=== PATIENT | male | born 1950 | race Caucasian/White ===

== ENCOUNTER 2018-11-15 22:53 | Emergency (ER) | payer MEDICARE, BC ==
[2018-11-16] MEDS: HYDROCODONE/APAP (5/325) TAB PO (01:03)
[2018-11-16] MEDS: CLINDAMYCIN 900 MG (PMX) 50 ML IVPB (01:07)
== END 2018-11-16 02:07 | disposition home or self-care (01) ==
LOC: E/R 22:53
DX: L03.011 Cellulitis of right finger (principal); I10 Essential (primary) hypertension; E11.9 Type 2 diabetes mellitus without complications; E03.9 Hypothyroidism, unspecified; Z79.84 Long term (current) use of oral hypoglycemic drugs
CPT/HCPCS: 96374; 99284-25

== ENCOUNTER 2018-11-18 07:33 | Emergency (ER) | payer MEDICARE, BC ==
[2018-11-18] MEDS: HYDROCODONE/APAP (10/325) TAB PO (07:54)
[2018-11-18 08:42] LABS: ADD MAN DIFF? NO
[2018-11-18 08:44] LABS: BASOPHILS % 0.4 % (0.0-2.0); EOSINOPHILS % 0.4 % (0.0-7.0); HEMATOCRIT 43.1 % (42.0-52.0); HEMOGLOBIN 13.8 g/dl (14.0-18.0); LYMPHOCYTES # 1.5 10^3/ul (0.8-2.9); LYMPHOCYTES % 19.1 % (15.0-51.0); MEAN CORPUSCULAR HEMOGLOBIN 28.8 pg (29.0-33.0); MEAN CORPUSCULAR VOLUME 89.8 fl (82.0-101.0); MEAN PLATELET VOLUME 11.7 fl (7.4-10.4); MONOCYTE # 0.9 10^3/ul (0.3-0.9); MONOCYTES % 11.6 % (0.0-11.0); NEUTROPHIL # 5.4 10^3/ul (1.6-7.5); NEUTROPHILS % 68.2 % (39.0-77.0); PLATELET COUNT 296 10^3/UL (140-415); RED CELL DISTRIBUTION WIDTH 14.6 % (11.5-14.5)
[2018-11-18] MEDS: PIPER-TAZO 3.375 GM IV (PMX) 100 ML IVPB (08:46)
[2018-11-18 09:00] LABS: ANION GAP 10 (5-13); BLOOD UREA NITROGEN 34 mg/dl (7-20); CALCIUM 9.5 mg/dl (8.4-10.2); CARBON DIOXIDE 28 mmol/L (21-31); CHLORIDE 99 mmol/L (97-110); CREATININE 1.77 mg/dl (0.61-1.24); Estimated GFR 38 mL/min (>60); GLUCOSE 138 mg/dl (70-220); POTASSIUM 4.6 mmol/L (3.5-5.1); SODIUM 137 mmol/L (135-144)
[2018-11-18] MEDS: VANCOMYCIN 1 GM (PMX) 250 ML IVPB (09:51)
[2018-11-18] MEDS: TRIMETHOPRIM/SULFAMETHOX (DS) TAB PO (11:03)
== END 2018-11-18 11:49 | disposition home or self-care (01) ==
LOC: E/R 07:33
DX: M65.9 Synovitis and tenosynovitis, unspecified (principal); E11.9 Type 2 diabetes mellitus without complications; I10 Essential (primary) hypertension; E03.9 Hypothyroidism, unspecified; Z79.84 Long term (current) use of oral hypoglycemic drugs
CPT/HCPCS: 36415; 80048; 83605; 85025; 87040-91; 96374; 96375; 99284-25